=== PATIENT | male | born 2000 | race American Indian/Alaskan Native ===

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

== ENCOUNTER 2020-03-17 17:17 | Emergency (ER) | payer SELFPAY ==
[2020-03-17] MEDS ORDERED: Lidocaine 1% 30 ML SDV INJECT ONE (17:40)
--- NOTE | 2020-03-17 17:46 | EDM.PDOC ---
Scribed by Dina Morley 03/17/20 [id number] for Fili Barth MD ED HPI GENERAL MEDICAL PROBLEM - General Chief Complaint: Skin Complaint Stated Complaint: FISHING HOOK LEFT SIDE OF HEAD Time Seen by Provider: 03/17/20 17:40 Source of Information: Reports: Patient, RN, RN Notes Reviewed History Limitations: Reports: No Limitations - History of Present Illness INITIAL COMMENTS - FREE TEXT/NARRATIVE: Pt presents to ER with a fish hook in the left scalp. Denies any other injury. Last Tetanus vaccine 1 year ago. Onset: Today Location: Reports: Head Quality: Reports: Ache Severity: Mild Improves with: Reports: None - Related Data Allergies Allergy/AdvReac Type Severity Reaction Status Date / Time Sulfa (Sulfonamide Allergy Cannot Verified 03/17/17 23:21 Antibiotics) Remember Home Meds: Home Meds Albuterol Sulfate [Proair Respiclick] 90 mcg IH Q4HR PRN 03/17/17 [History] Past Medical History - Past Health History Medical/Surgical History: Denies Medical/Surgical History Respiratory History: Reports: Asthma Other Respiratory History: inhaler prn Other Dermatologic History: mother states that child gets skin infections very easily/frequently. denies MRSA - Infectious Disease History Infectious Disease History: Reports: MRSA Social & Family History - Family History HEENT: Reports: Allergic Rhinitis Cardiac: Reports: CAD Respiratory: Reports: Asthma, COPD Psychiatric: Reports: Anxiety, Depression, Emotional Problems, Psych Hospitalization(s) (siblings), Suicide Attempt (siblings) Endocrine/Metabolic: Reports: Diabetes, type II (multiple adult family members) - Caffeine Use Caffeine Use: Reports: Coffee, Energy Drinks, Soda - Sexual History Sexual History: Reports: Sexually Active - Living Situation & Occupation Living situation: Reports: with Family Occupation: Other (expelled from school) ED ROS GENERAL - Review of Systems Review Of Systems: Comprehensive ROS is negative, except as noted in HPI. ED EXAM, SKIN/RASH Exam: See Below Exam Limited By: No Limitations General Appearance: Alert, WD/WN, No Apparent Distress Eye Exam: Bilateral Eye: Normal Inspection Nose: Normal Inspection Throat/Mouth: Normal Inspection Head: Normocephalic, Other (Fish hook in left parietal scalp) Neck: Normal Inspection Respiratory/Chest: No Respiratory Distress Cardiovascular: Normal Peripheral Pulses Neurological: Alert, Oriented, CN II-XII Intact, No Motor/Sensory Deficits Psychiatric: Normal Mood ED SKIN PROCEDURES - Additional/Other Procedure(s) Other (Free Text) Procedure(s): Fish hook removal left parietal scalp. Area cleaned and prepped by RN with hibiclens and sterile water. Area of fish hook locally blocked with lidocaine 1 % 5cc. Using clean tech. the eye of the hook and lure were cut free and removed with side cutter. The hook shank grasped with needle nosed plier and advanced until the hook and jed were exposed through the skin and removed with side cutter. The remaining hook backed out the entry wound. No residual foreign body. Wound was cleansed, and dried, bacitracin ointment applied, and dressing by RN. No complications. Course - Orders/Labs/Meds Orders: Active Orders 24 hr Category Date Time Status Lidocaine 1% [Xylocaine-MPF 1%] Med 03/17/20 17:40 Once 30 ml INJECT ONETIME ONE Medication Orders Lidocaine HCl (Xylocaine-Mpf 1%) 30 ml INJECT ONETIME ONE Stop: 03/17/20 17:41 Meds: Medications Generic Name Dose Route Start Last Admin Trade Name Len PRN Reason Stop Dose Admin Lidocaine HCl 30 ml 03/17/20 17:40 Xylocaine-Mpf 1% INJECT 03/17/20 17:41 ONETIME ONE Departure - Departure Time of Disposition: 18:00 Disposition: Home, Self-Care 01 Condition: Good Clinical Impression: Fish hook injury of scalp Qualifiers: Encounter type: initial encounter Qualified Code(s): S09.90XA - Unspecified injury of head, initial encounter - Discharge Information *PRESCRIPTION DRUG MONITORING PROGRAM REVIEWED*: Not Applicable *COPY OF PRESCRIPTION DRUG MONITORING REPORT IN PATIENT RYAN: Not Applicable Instructions: Puncture Wound, [id number] Forms: ED Department Discharge Additional Instructions: Keep area of injury clean and dry. Follow up in clinic if any signs of infection develop. - My Orders Last 24 Hours: My Active Orders 03/17/20 17:40 Lidocaine 1% [Xylocaine-MPF 1%] 30 ml INJECT ONETIME ONE - Assessment/Plan Last 24 Hours: My Active Orders 03/17/20 17:40 Lidocaine 1% [Xylocaine-MPF 1%] 30 ml INJECT ONETIME ONE I have read and agree with the documentation that has been completed regarding this visit. By signing this record, I attest that the documentation was completed in my physical presence and is an accurate record of the encounter.
[2020-03-17 17:48] VITALS: PULSE 82
[2020-03-17] MEDS ORDERED: Bacitracin Oint 1 GM U/D Packet TOP ONE (17:54)
[2020-03-17 18:05] VITALS: BP 131/84
== END 2020-03-17 18:04 | disposition home or self-care (01) ==
LOC: DL.ED 17:17
DX: S00.05XA Superficial foreign body of scalp, initial encounter (principal); J45.909 Unspecified asthma, uncomplicated; W45.8XXA Other foreign body or object entering through skin, initial encounter; Z88.2 Allergy status to sulfonamides
CPT/HCPCS: 64450; 99282; 99283; J2001